=== PATIENT | male | born 1990 | race Asian ===

== ENCOUNTER 2016-12-09 07:05 | Emergency (ER) | payer OTHER | END 2016-12-09 08:21 | disposition other institution (70) | LOC: ED 07:05 | DX: Z02.89 Encounter for other administrative examinations (principal) ==

== ENCOUNTER 2016-12-09 07:05 | Emergency (ER) | payer SELFPAY ==
[2016-12-09 08:21] VITALS: BP 119/56
== END 2016-12-09 08:21 | disposition other institution (70) ==
LOC: ED 07:05
DX: S60.032A Contusion of left middle finger without damage to nail, initial encounter (principal); S60.042A Contusion of left ring finger without damage to nail, initial encounter; V33 Occupant of three-wheeled motor vehicle injured in collision with car, pick-up truck or van; Y93.89 Activity, other specified; Y92.488 Other paved roadways as the place of occurrence of the external cause; Y99.8 Other external cause status